=== PATIENT | female | born 1975 | race Caucasian/White ===

== ENCOUNTER 2023-04-22 20:55 | Emergency (ER) | payer OTHER, SELFPAY ==
[2023-04-22] VITALS (7 sets, daily range): BP systolic 126–147; BP diastolic 69–88; PULSE 69–86; RESP 12–20; TEMP 36.5; O2SAT 99–100
--- NOTE | ~2023-04-22 | XR_ITS ---
Clinical Indication: Shortness of breath PA and lateral views of the chest: Comparison: None Findings: The lungs are clear, without evidence of focal consolidation or pleural effusion. Cardiome diastinal silhouette is within normal limits. Bones and soft tissues are unremarkable. Impression: Normal chest. Reviewed, dictated and finalized at [facility]. Impression: Normal chest.
[2023-04-22 21:54] LABS: Basophils Percent Auto 0.2 % (0.2-1.2); Eosinophils Absolute Auto 0.1 K/mm3 (0-0.3); Hematocrit 41.2 % (37.0-47.0); Hemoglobin 13.9 g/dL (12.0-15.0); Immature Granulocyte Absolute 0.03 K/mm3 (0.00-0.031); Immature Granulocyte Percent A 0.3 % (0-0.5); Lymphocytes Absolute Auto 1.52 K/mm3 (0.9-3.2); Lymphocytes Percent Auto 15.9 % (18.3-44.2); Mean Corpuscular HGB Conc 33.7 g/dl (32-36); Mean Corpuscular Hemoglobin 30.3 pg (26-34); Mean Corpuscular Volume 89.8 fl (80-100); Mean Platelet Volume 8.6 fl (7.4-10.4); Monocytes Absolute Auto 0.9 K/mm3 (0.1-0.6); Monocytes Percent Auto 8.9 % (2.6-8.5); Neutrophils Percent Auto 73.7 % (45.5-73.1); Platelet Count Result 266 k/mm3 (150-375); Red Blood Count 4.59 M/mm3 (4.2-5.4); Red Cell Distribution Width 12.6 % (11.5-14.5); White Blood Count 9.5 K/mm3 (4.5-10.0)
[2023-04-22 22:04] LABS: Alanine Aminotransferase 19 U/L (6-35); Albumin Level 4.4 g/dL (3.5-5.1); Alkaline Phosphatase 66 U/L (38-126); Anion Gap 6 mmol/L (8-16); Aspartate Amino Transferase 23 U/L (14-36); Bilirubin,Total 0.9 mg/dL (0.2-1.3); Blood Urea Nitrogen 11 mg/dL (7-17); Calcium 9.6 mg/dL (8.4-10.2); Carbon Dioxide 29 mmol/L (22-30); Chloride 105 mmol/L (98-107); Estimated CRCL calculation 63 ml/min; Estimated Glomerular Filt Rate > 60; Glucose 113 mg/dL (65-110); Potassium 4.2 mmol/L (3.4-5.0); Sodium 140 mmol/L (137-145)
--- NOTE | 2023-04-22 23:00 | ECG_ITS ---
Measurements Intervals [place] Rate: 68 P: 26 [place]: 163 QRS: 40 QRSD: 73 T: 37 QT: 411 QTc: 440 Interpretive Statements SINUS RHYTHM NORMAL ECG NO PREVIOUS ECG AVAILABLE FOR COMPARISON Electronically Signed On 04-23-2023 10:23:24 CDT by Jono Gupta M.D.
--- NOTE | 2023-04-22 23:02 | ED.GENADULT ---
HPI - General Adult General Chief complaint: Shortness of Breath/Dyspnea Stated complaint: shortness of breath Time Seen by Provider: 04/22/23 22:31 Source: patient Mode of arrival: ambulatory Limitations: no limitations History of Present Illness HPI narrative: This is a 47-year-old female who presents to the ED with chief complaint of shortness of breath x2 days. Patient states that she had some intermittent dyspnea on Sunday it seemed to get worse yesterday while she was at the [employer] race outside. She states that she had a lot of trouble with going up the stairs. She feels that the dyspnea is certainly worse on exertion. Denies orthopnea. She also reports some mild chest pain/pressure across the center chest. Also reports Related Data Allergies Allergy/AdvReac Type Severity Reaction Status Date / Time No Known Allergies Allergy Verified 04/22/23 20:56 Review of Systems Review of Systems: CONSTITUTIONAL: Denies fever, chills, or sweats. EYES: Denies visual changes, redness, or discharge. ENT: Denies rhinorrhea, congestion, sore throat, or otalgia. CARDIOVASCULAR: Denies chest pain, palpitations, or edema. RESPIRATORY: Denies cough or dyspnea. GASTROINTESTINAL: Denies abdominal pain, nausea, vomiting, or diarrhea. GENITOURINARY: Denies dysuria or hematuria. SKIN: Denies rash or itching. MUSCULOSKELETAL: Denies back pain, joint pain, or myalgia. NEUROLOGIC: Denies headache, numbness, dizziness, or weakness. PSYCHIATRIC: Denies anxiety or depression. Exam Narrative: GENERAL: Well-appearing, well-nourished, and in no acute distress. Resting comfortably. HEAD: Normocephalic, atraumatic. EYES: PERRLA and EOMI. ENT: Nares clear, no rhinorrhea or epistaxis. Mucous membranes moist. Oropharynx without tonsillar hypertrophy exudate or other lesions. NECK: Supple. No adenopathy or masses. CHEST: No respiratory distress. Clear to auscultation. No wheezes rales or rhonchi. Sats 100% on room air. HEART: Regular rate and rhythm. No murmur heard. Normal peripheral pulses. ABDOMEN: Soft, nontender, nondistended, normal active bowel sounds. MSK: Normal range of motion. No edema. SKIN: Warm, dry, no rash. NEURO: Alert and oriented x3. No focal deficits. PSYCH: Normal mood and affect. Course Vital Signs Vital signs: Vital Signs Temperature 97.7 F 04/22/23 20:57 Pulse Rate 84 04/22/23 20:57 Respiratory Rate 18 04/22/23 20:57 Blood Pressure 141/88 H 04/22/23 20:57 Pulse Oximetry 100 04/22/23 20:57 Oxygen Delivery Room Air 04/22/23 20:57 Temperature 97.7 F 04/22/23 20:57 Pulse Rate 73 04/23/23 01:35 Respiratory Rate 17 04/23/23 01:35 Blood Pressure 120/65 04/23/23 01:35 Pulse Oximetry 98 04/23/23 01:35 Oxygen Delivery Room Air 04/22/23 20:57 Medical Decision Making MDM Narrative Medical decision making narrative: This is a 47-year-old female who presents to the ED with chief complaint of shortness of breath x2 days. Vitals are stable. Exam is unremarkable with 100% saturation on room air. No signs of fluid overload. EKG shows normal sinus rhythm. PERC negative. Lab work is grossly unremarkable. Troponin is negative. Chest x-ray is negative. Feel this is a low risk chest pain. Heart score of 1 due to age. She will be discharged in stable condition with PCP follow-up. Supportive measures for home discussed and strict return precautions were given. Patient is understanding and agreeable with the plan for discharge and follow-up. Vital Signs Vital Signs: Vital Signs Temperature 97.7 F 04/22/23 20:57 Pulse Rate 84 04/22/23 20:57 Respiratory Rate 18 04/22/23 20:57 Blood Pressure 141/88 H 04/22/23 20:57 Pulse Oximetry 100 04/22/23 20:57 Oxygen Delivery Room Air 04/22/23 20:57 Temperature 97.7 F 04/22/23 20:57 Pulse Rate 73 04/23/23 01:35 Respiratory Rate 17 04/23/23 01:35 Blood Pressure 120/65 04/23/23 01:35 Pulse Oximetry
[2023-04-23 00:08] LABS: Troponin I < 0.012 ng/mL (0.000-0.034)
[2023-04-23 01:30] VITALS: BP 120/65; PULSE 73; RESP 17; O2SAT 98
[2023-04-23 01:35] VITALS: BP 120/65; PULSE 73; RESP 17; O2SAT 98
== END 2023-04-23 01:40 | disposition home or self-care (01) ==
PROVIDERS: Emergency Medicine; Emergency Provider Physician Assistant
DX: R07.9 Chest pain, unspecified (principal)
CPT/HCPCS: 36415; 71046; 80053; 84484; 85025; 93005; 99284